=== PATIENT | female | born 1985 | race Caucasian/White ===

== ENCOUNTER 2021-01-09 22:24 | Emergency (ER) | payer MEDICAID, SELFPAY ==
[2021-01-09 22:30] VITALS: BP 157/91; PULSE 93; RESP 18; TEMP 36.7; O2SAT 98
--- NOTE | 2021-01-09 22:40 | ED.GENADUL_ITS ---
Discharge Plan Disposition Patient Disposition: HOME Condition: Stable Discharge Details Clinical Impression: Acute left otitis media Primary Care Provider: Natasha,Local ED Provider: Daina Alonso Home Meds and New Rx's Prescriptions: New ciprofloxacin HCl 0.2 % dropperette 3 drp otic (ear) BID 7 Days Qty: 14 RF: 0 clindamycin HCl 300 mg capsule 300 mg PO BID 7 Days Qty: 14 RF: 0 No Action atenolol 25 mg Tablet 25 mg PO DAILY RF: 0 triamterene-hydrochlorothiazid 37.5-25 mg Capsule 1 cap PO DAILY RF: 0 pantoprazole 20 mg Tablet,Delayed Release (Dr/Ec) 20 mg PO DAILY RF: 0 estradiol 2 mg Tablet 2 mg PO DAILY RF: 0 sertraline 50 mg Tablet 50 mg PO DAILY RF: 0 scopolamine base 1 mg over 3 days Patch 3 Day 1 mg transdermal PRN PRNRF: 0 celecoxib [Celebrex] 100 mg Capsule 100 mg PO PRN PRNRF: 0 Discharge Instructions Instructions: Ear Infection (ED) Additional Instructions: Follow up with primary care provider in 3-5 days. Return to ED sooner if any worsening or concerns. Increase oral fluids. Follow-up with your doctors as scheduled on Friday. Take medications as directed. Please take Tylenol or Ibuprofen with food every 4-6 hours as needed for pain and swelling. No swimming or soaking. Medical Decision Making 35-year-old female presents the ER chief complaint of left ear pain for the last 4 days. She has a past medical history of brain surgery on her left side, PE tubes placed in her left ear, associated with headache. Denies any sinus pain no fever no chills, denies any sore throat. She does see neurosurgery with [facility] and ENT in [facility] she has an appointment on Friday but pain has gotten worse to be so she decided to seek treatment. She has been taking Tylenol and ibuprofen and Celebrex which is helping somewhat. On initial exam her left tympanic membrane is red and bulging. No tenderness to left mastoid process. She does have some swelling noted to the pinna which she states is at her baseline since the brain surgery. Patient was placed on clindamycin 3 mg twice daily x7 days and ciprofloxacin attic eardrops twice daily due to her penicillin allergy. Patient has taken these medications before. She does have a follow-up appointment on Friday with her ENT doctor is encouraged to keep this appointment. Discussed strict return instructions, verbalized understanding. HPI General Mode of arrival: ambulatory . Date/Time Provider Initiated Documentation: 01/09/21 22:28 . Limitations to Documentation: no limitations . Information obtained by: patient . HPI Narrative: 35-year-old female presents the ER chief complaint of left ear pain for the last 4 days. She has a past medical history of brain surgery on her left side, PE tubes placed in her left ear, associated with headache. Denies any sinus pain no fever no chills, denies any sore throat. She does see neurosurgery with [facility] and ENT in [facility] she has an appointment on Friday but pain has gotten worse to be so she decided to seek treatment. She has been taking Tylenol and ibuprofen and Celebrex which is helping somewhat. On initial exam her left tympanic membrane is red and bulging. No tenderness to left mastoid process. She does have some swelling noted to the pinna which she states is at her baseline since the brain surgery. Related Data Home Medications Medication Instructions Recorded Confirmed atenolol 25 mg PO DAILY 01/09/21 01/09/21 celecoxib [Celebrex] 100 mg PO PRN PRN 01/09/21 01/09/21 ciprofloxacin HCl 3 drp OTIC (EAR) BID 7 Days #14 ea 01/09/21 clindamycin HCl 300 mg PO BID 7 Days #14 cap 01/09/21 estradiol 2 mg PO DAILY 01/09/21 01/09/21 pantoprazole 20 mg PO DAILY 01/09/21 01/09/21 scopolamine base 1 mg TRANSDERMAL PRN PRN 01/09/21 01/09/21 sertraline 50 mg PO DAILY 01/09/21 01/09/21 triamterene-hydrochlorothiazid 1 cap PO DAILY 01/09/21 01/09/21 Previous Rx's Medication Instructions Recorded ciprofloxacin HCl 3 drp OTIC (EAR) BID 7 Days #14 ea 01/09/21 clindamycin HCl 300 mg PO BID 7 Days #14 cap 01/09/21 Allergies Allergy/AdvReac Type Severity Reaction Status Date / Time morphine AdvReac Unverified 01/09/21 22:36 Penicillins AdvReac Unverified 01/09/21 22:36 sulfur dioxide AdvReac Unverified 01/09/21 22:36 General Stated Complaint: EarProblem ZAKIYA: 4 Review of Systems Narrative: Constitutional: Negative for weight loss, alert and oriented, well groomed, normal body habitus, appears comfortable. HEENT: Denies trauma, blurry vision, nasal discharge, sore throat, trouble swallowing. Positive left ear pain left-sided headache past medical history of brain surgery. She does have tubes in place in her left ear. She reports swelling of her external ear which is chronic. Chest: Denies chest pain, palpitations, irregular rhythm, hypertension. Respiratory: Denies Shortness of breath, cough, hemoptysis. GI: Denies abdominal pain, nausea, vomiting, diarrhea, constipation. : Denies dysuria, hematuria, flank pain, rectal bleeding. Neuro: Denies dizziness, blurry vision, weakness, syncope, headache or facial numbness. Hematologic: Denies easy bruising, intolerance to heat or cold, hair loss. [facility] Social History Smoking/Tobacco Use Status: Never Smoking risk assessment performed?: Yes Do you feel safe at home: Yes Do you feel safe in your relationship?: Yes Exam Narrative Exam Narrative: Constitutional: Alert and oriented x3. Appears stated age. Normal body habitus. Head: Normocephalic, no trauma. Healed surgical, has previous surgical scar behind the left ear. Eyes: Pupils PERRLA, Red reflex noted, EOM's intact. Eyelids symmetrical without lesions, discharge, or swelling. ENT: Right tympanic membrane within normal limits. Left TM red bulging, there is a PE tube noted. External ear on left there is swelling mild redness noted to the pinna, no mastoid TTP, swelling, or erythema, Nasal turbinates WNL, no nasal discharge. Normal dentition, Posterior pharynx WNL, no exudate. Chest: RRR, Normal S1, S2, distal pulses intact. Resp: Lungs clear to auscultation bilaterally, no wheezes, rales, or rhonchi. Musculoskeletal: Normal gait, 5/5 strength to all four extremities. Skin: No suspicious rashes or lesions. Capillary refill less than 2 sec. Neurologic: Cranial nerves II-XII intact. Alert and oriented x 3. DTR's intact. Hematologic/Lymphatic: No ecchymosis, no lymphadenopathy. Scar noted to left parietal scalp Course Vital Signs Vital signs: Vital Signs Temperature 36.7 C 01/09/21 22:30 Pulse 93 H 01/09/21 22:30 Respiratory Rate 18 01/09/21 22:30 Blood Pressure 157/91 H 01/09/21 22:30 Pulse Oximetry 98 01/09/21 22:30 Temperature 36.7 C 01/09/21 22:30 Temperature Source Temporal Artery Scan 01/09/21 22:30 Pulse 93 H 01/09/21 22:30 Respiratory Rate 18 01/09/21 22:30 Blood Pressure 157/91 H 01/09/21 22:30 Pulse Oximetry 98 01/09/21 22:30 Pain Level 9 01/09/21 22:30
[2021-01-09] MEDS: oxyCODONE 5 MG TAB PO (23:12)
[2021-01-09] MEDS: Clindamycin 300 MG CAP PO (23:12)
== END 2021-01-09 23:11 | disposition home or self-care (01) ==
PROVIDERS: Emergency Provider Registered Nurse Emergency
DX: H66.92 Otitis media, unspecified, left ear (principal)
CPT/HCPCS: 99283